=== PATIENT | male | born 1985 | race Caucasian/White ===

== ENCOUNTER 2017-08-16 14:45 | Emergency (ER) | payer MEDICAID ==
[~2017-08-16] VITALS: Ht 157.5 cm; Wt 66.4 kg
[2017-08-16 14:49] VITALS: Ht 157.5 cm; Wt 66.4 kg
[2017-08-16] MEDS ORDERED: ACETAMINOPHEN 325 MG TAB PO ONE (16:00)
[2017-08-16] MEDS ORDERED: DIPHTH/TET/ACEL PERTUSS (ADULT) 0.5 ML VIAL IM* ONE (16:00)
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
[2017-08-16] MEDS ORDERED: IBUP-1542 PO (16:25)
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
== END 2017-08-16 17:38 | disposition home or self-care (01) ==
LOC: FTE 14:45
DX: S40.011A Contusion of right shoulder, initial encounter (principal); S60.414A Abrasion of right ring finger, initial encounter; V49.40XA Driver injured in collision with unspecified motor vehicles in traffic accident, initial encounter
CPT/HCPCS: 73060; 73130; 90471; 90715; Z7502; Z7610